=== PATIENT | female | born 1955 | race Caucasian/White ===

== ENCOUNTER 2017-02-06 11:09 | Observation (INO) | payer OTHER ==
[~2017-02-06] VITALS: Ht 157.5 cm; Wt 62.6 kg
[2017-02-06 12:29] LABS: BASOPHIL % 0.4 % (0-2); PLATELET COUNT 256 x10^3mcL (130-400); RED CELL DISTRIBUTION WIDTH 12.8 % (11.5-14.5)
[2017-02-06 12:38] LABS: CALCIUM 9.1 mg/dL (8.5-10.1); CARBON DIOXIDE 24.4 mmol/L (21-32); CHLORIDE SERUM 106 mmol/L (98-107); CREATININE SERUM 0.6 mg/dL (0.6-1.0); GFR1 > 60 mL/min; GLUCOSE SERUM 101 mg/dL (74-106); POTASSIUM SERUM 4.1 mmol/L (3.5-5.1); SODIUM SERUM 141 mmol/L (136-145)
[2017-02-06 12:42] LABS: ALBUMIN 3.9 g/dL (3.4-5.0); ALKALINE PHOSPHATASE 109 U/L (46-116); ALT/SGPT 36 U/L (14-59); AST/SGOT 24 U/L (15-37); BILIRUBIN TOTAL 0.44 mg/dL (0.20-1.00); MAGNESIUM 2.3 mg/dL (1.8-2.4); TOTAL PROTEIN, SERUM 7.1 g/dL (6.4-8.2)
[2017-02-06 13:08] LABS: UA SPECIFIC GRAVITY <=1.005 (1.005-1.035); microscopic required? YES; urine erythrocyte TRACE (NEGATIVE)
[2017-02-06] MEDS ORDERED: NOR5 PO (14:36)
[2017-02-06] MEDS ORDERED: MECLIZINE HYDRO25 M1 PO (14:56)
[2017-02-06 14:59] VITALS: BP 166/84
[2017-02-06 18:04] VITALS: BP 141/74
[2017-02-06 20:45] VITALS: BP 123/69
[2017-02-07] VITALS (7 sets, daily range): BP systolic 81–119; BP diastolic 34–73
[2017-02-07 06:24] LABS: BASOPHIL % 0.9 % (0-2); PLATELET COUNT 238 x10^3mcL (130-400); RED CELL DISTRIBUTION WIDTH 12.9 % (11.5-14.5)
[2017-02-07] MEDS ORDERED: ZES10 PO (08:37)
== END 2017-02-07 14:41 | disposition home or self-care (01) | DRG 199 ==
LOC: ED 11:09 → DU 13:48
PROVIDERS: Emergency Medicine; ADMIT Internal Medicine Pulmonary Disease
DX: I16.0 Hypertensive urgency (principal); E86.0 Dehydration; N81.4 Uterovaginal prolapse, unspecified; F17.200 Nicotine dependence, unspecified, uncomplicated; Z79.82 Long term (current) use of aspirin
CPT/HCPCS: 83880; G0378; J1650; J8597; Q0092

== ENCOUNTER 2018-05-19 09:53 | Emergency (ER) | payer OTHER ==
[~2018-05-19] VITALS: Ht 160 cm; Wt 74.4 kg
[~2018-05-19 09:53] MED LIST: MECLIZINE HYDRO25 M1 PO; NOR5 PO; ZES10 PO
[2018-05-19 10:00] VITALS: Ht 160 cm; Wt 74.4 kg
[2018-05-19 10:52] VITALS: BP 155/74
== END 2018-05-19 10:21 | disposition home or self-care (01) ==
LOC: ED 09:53
DX: L03.115 Cellulitis of right lower limb (principal); S81.801A Unspecified open wound, right lower leg, initial encounter; W22.8XXA Striking against or struck by other objects, initial encounter; Y93.89 Activity, other specified; Y92.89 Other specified places as the place of occurrence of the external cause; Y99.8 Other external cause status

== ENCOUNTER 2019-09-02 10:46 | Emergency (ER) | payer OTHER ==
[~2019-09-02] VITALS: Ht 157.5 cm; Wt 70.8 kg
[2019-09-02 10:53] VITALS: Ht 157.5 cm; Wt 70.8 kg
[2019-09-02 12:03] LABS: BASOPHIL % 0.6 % (0-2); PLATELET COUNT 324 x10^3mcL (130-400); RED CELL DISTRIBUTION WIDTH 12.2 % (11.5-14.5)
[2019-09-02 12:17] LABS: CALCIUM 9.2 mg/dL (8.5-10.1); CARBON DIOXIDE 24.8 mmol/L (21-32); CHLORIDE SERUM 97 mmol/L (98-107); CREATININE SERUM 0.7 mg/dL (0.6-1.0); GFR1 > 60 mL/min; GLUCOSE SERUM 100 mg/dL (74-106); POTASSIUM SERUM 3.3 mmol/L (3.5-5.1); SODIUM SERUM 133 mmol/L (136-145)
[2019-09-02 12:21] LABS: ALBUMIN 4.1 g/dL (3.4-5.0); ALKALINE PHOSPHATASE 129 U/L (46-116); ALT/SGPT 81 U/L (14-59); AST/SGOT 54 U/L (15-37); BILIRUBIN TOTAL 0.57 mg/dL (0.20-1.00); MAGNESIUM 2.1 mg/dL (1.8-2.4); TOTAL PROTEIN, SERUM 7.9 g/dL (6.4-8.2)
[2019-09-02 12:33] LABS: CHOLESTEROL 244 mg/dL (<200); HDL CHOLESTEROL 66 mg/dL (40-60)
[2019-09-02 12:39] LABS: microscopic required? YES; urine erythrocyte TRACE (NEGATIVE)
[2019-09-02 13:40] LABS: AMPHETAMINE QUAL UR NONE DETECTED (See below)
[2019-09-02 15:20] VITALS: BP 128/67
== END 2019-09-02 15:43 | disposition home or self-care (01) ==
LOC: ED 10:46
PROVIDERS: Emergency Medicine
DX: R42 Dizziness and giddiness (principal); R51 Headache; E87.8 Other disorders of electrolyte and fluid balance, not elsewhere classified; I10 Essential (primary) hypertension; Z98.890 Other specified postprocedural states; Z90.710 Acquired absence of both cervix and uterus; Z90.49 Acquired absence of other specified parts of digestive tract; Z88.8 Allergy status to other drugs, medicaments and biological substances
CPT/HCPCS: G0480; J1885; J7030; J8597; Q0092

== ENCOUNTER 2019-11-18 10:16 | Emergency (ER) | payer OTHER ==
[~2019-11-18] VITALS: Ht 157.5 cm; Wt 69.9 kg
[2019-11-18 10:26] VITALS: Ht 157.5 cm; Wt 69.9 kg
[2019-11-18 13:09] VITALS: BP 105/56
== END 2019-11-18 13:50 | disposition home or self-care (01) ==
LOC: ED 10:16
DX: J20.9 Acute bronchitis, unspecified (principal); I10 Essential (primary) hypertension; Z88.1 Allergy status to other antibiotic agents
CPT/HCPCS: J7613

== ENCOUNTER 2020-05-24 11:31 | Emergency (ER) | payer OTHER ==
[~2020-05-24] VITALS: Ht 157.5 cm; Wt 71.2 kg
[2020-05-24 11:32] VITALS: Ht 157.5 cm; Wt 71.2 kg
[2020-05-24 12:19] LABS: BASOPHIL % 1.1 % (0-2); PLATELET COUNT 355 x10^3mcL (130-400); RED CELL DISTRIBUTION WIDTH 12.1 % (11.5-14.5)
[2020-05-24 12:31] LABS: UA SPECIFIC GRAVITY 1.015 (1.005-1.035); microscopic required? YES; urine erythrocyte NEGATIVE (NEGATIVE)
[2020-05-24 12:43] LABS: CALCIUM 8.7 mg/dL (8.5-10.1); CARBON DIOXIDE 27.9 mmol/L (21-32); CHLORIDE SERUM 97 mmol/L (98-107); CREATININE SERUM 0.8 mg/dL (0.6-1.0); GFR1 > 60 mL/min; GLUCOSE SERUM 109 mg/dL (74-106); POTASSIUM SERUM 3.6 mmol/L (3.5-5.1); SODIUM SERUM 134 mmol/L (136-145)
[2020-05-24 12:49] LABS: ALBUMIN 3.9 g/dL (3.4-5.0); ALKALINE PHOSPHATASE 139 U/L (46-116); ALT/SGPT 62 U/L (14-59); AST/SGOT 31 U/L (15-37); BILIRUBIN TOTAL 0.5 mg/dL (0.20-1.00); HDL CHOLESTEROL 51 mg/dL (40-60); LIPASE 65 IU/L (73-393); TRIGLYCERIDES 186 mg/dL (<150)
[2020-05-24 13:03] LABS: CHOLESTEROL 242 mg/dL (<200); CHOLESTEROL/HDL RATIO 4.7; TOTAL PROTEIN, SERUM 9.5 g/dL (6.4-8.2)
[2020-05-24 13:42] LABS: FREE T4 0.89 ng/dL (0.76-1.46); FREE THYROXINE INDEX 2.2 ug/dL (1.4-4.5); T4(THYROXINE) 7.3 ug/dL (4.7-13.3)
[2020-05-24 14:15] VITALS: BP 136/76
[2020-05-24 14:23] LABS: T3 TOTAL 1.19 ng/mL
== END 2020-05-24 14:20 | disposition home or self-care (01) ==
LOC: ED 11:31
PROVIDERS: Specialist
DX: I10 Essential (primary) hypertension (principal); N39.0 Urinary tract infection, site not specified; Z90.710 Acquired absence of both cervix and uterus
CPT/HCPCS: 83880; 84439; Q0092

== ENCOUNTER 2020-08-01 07:15 | Day surgery (SDC) | payer OTHER ==
[2020-07-28 11:58] LABS: PLATELET COUNT 329 x10^3mcL (130-400); RED CELL DISTRIBUTION WIDTH 12.5 % (11.5-14.5)
[2020-07-28 12:01] LABS: ALBUMIN 4.1 g/dL (3.4-5.0); ALKALINE PHOSPHATASE 135 U/L (46-116); ALT/SGPT 40 U/L (14-59); AST/SGOT 24 U/L (15-37); BILIRUBIN TOTAL 0.7 mg/dL (0.20-1.00); CALCIUM 9.6 mg/dL (8.5-10.1); CHLORIDE SERUM 96 mmol/L (98-107); CREATININE SERUM 0.7 mg/dL (0.6-1.0); GFR1 > 60 mL/min; GLUCOSE SERUM 116 mg/dL (74-106); SODIUM SERUM 132 mmol/L (136-145); TOTAL PROTEIN, SERUM 7.8 g/dL (6.4-8.2)
--- NOTE | 2020-07-29 08:54 | NUR ---
LABS SENT OVER TO [facility] FOR REVEIW. LABS OKAYS PER DR. Greyson NOBLE FOR SURGERY ON 08-01-20
[~2020-08-01] VITALS: Ht 157.5 cm; Wt 69.8 kg
[2020-08-01 07:41] VITALS: BP 138/82
[2020-08-01 16:24] VITALS: BP 128/68
== END 2020-08-01 16:10 | disposition home or self-care (01) ==
LOC: DS 07:15 → OR 09:00 → DS 09:30
PROVIDERS: ATTEND Surgery
DX: K80.10 Calculus of gallbladder with chronic cholecystitis without obstruction (principal); I10 Essential (primary) hypertension; Z79.899 Other long term (current) drug therapy; Z90.710 Acquired absence of both cervix and uterus
CPT/HCPCS: J0694; J1170; J2405; J3010; J3490

== ENCOUNTER 2020-08-08 09:59 | Inpatient (IN) | payer OTHER ==
[~2020-08-08] VITALS: Ht 157.5 cm; Wt 69.9 kg
[2020-08-08 10:10] VITALS: Ht 157.5 cm; Wt 69.9 kg
[2020-08-08 10:37] LABS: BASOPHIL % 0.8 % (0-2); PLATELET COUNT 356 x10^3mcL (130-400); RED CELL DISTRIBUTION WIDTH 12.4 % (11.5-14.5)
[2020-08-08 10:50] LABS: CARBON DIOXIDE 25.7 mmol/L (21-32); CHLORIDE SERUM 93 mmol/L (98-107); CREATININE SERUM 0.7 mg/dL (0.6-1.0); GFR1 > 60 mL/min; GLUCOSE SERUM 110 mg/dL (74-106); POTASSIUM SERUM 3.6 mmol/L (3.5-5.1); SODIUM SERUM 128 mmol/L (136-145)
[2020-08-08 10:53] LABS: ALBUMIN 3.5 g/dL (3.4-5.0); ALKALINE PHOSPHATASE 282 U/L (46-116); ALT/SGPT 311 U/L (14-59); AST/SGOT 183 U/L (15-37); CHOLESTEROL 181 mg/dL (<200); CHOLESTEROL/HDL RATIO 3.2; HDL CHOLESTEROL 57 mg/dL (40-60); LIPASE 107 IU/L (73-393); TOTAL PROTEIN, SERUM 7.4 g/dL (6.4-8.2); TRIGLYCERIDES 104 mg/dL (<150)
[2020-08-08 11:15] LABS: UA SPECIFIC GRAVITY 1.015 (1.005-1.035); microscopic required? YES; urine erythrocyte NEGATIVE (NEGATIVE)
[2020-08-08] MEDS ORDERED: ACETAMINOPHEN-H1 TA1 PO (14:40)
[2020-08-08] MEDS ORDERED: DILTIAZEM HCL120 M3 PO (14:40)
[2020-08-08] MEDS ORDERED: COL-RITE100 M2 PO (14:41)
[2020-08-08] MEDS ORDERED: KEFLEX250 M1 PO (14:41)
[2020-08-08 16:31] VITALS: BP 121/67
[2020-08-08] MEDS ORDERED: LOSARTAN POTASS1 TA6 PO (17:02)
[2020-08-08 17:15] VITALS: BP 113/62
[2020-08-08 21:12] VITALS: BP 102/55
[2020-08-09 05:19] VITALS: BP 102/60
[2020-08-09 07:37] LABS: BASOPHIL % 0.8 % (0-2); PLATELET COUNT 307 x10^3mcL (130-400); RED CELL DISTRIBUTION WIDTH 12.3 % (11.5-14.5)
[2020-08-09 08:08] LABS: ALKALINE PHOSPHATASE 319 U/L (46-116); ALT/SGPT 290 U/L (14-59); AST/SGOT 164 U/L (15-37); BILIRUBIN TOTAL 0.7 mg/dL (0.20-1.00); CALCIUM 8.4 mg/dL (8.5-10.1); CHLORIDE SERUM 93 mmol/L (98-107); CHOLESTEROL 159 mg/dL (<200); CHOLESTEROL/HDL RATIO 3.6; CREATININE SERUM 0.6 mg/dL (0.6-1.0); GFR1 > 60 mL/min; GLUCOSE SERUM 76 mg/dL (74-106); HDL CHOLESTEROL 44 mg/dL (40-60); LIPASE 128 IU/L (73-393); MAGNESIUM 2.2 mg/dL (1.8-2.4); POTASSIUM SERUM 3.4 mmol/L (3.5-5.1); SODIUM SERUM 126 mmol/L (136-145); TOTAL PROTEIN, SERUM 6.3 g/dL (6.4-8.2); TRIGLYCERIDES 100 mg/dL (<150)
[2020-08-09 08:12] LABS: ALBUMIN 2.9 g/dL (3.4-5.0)
[2020-08-09 08:45] VITALS: BP 120/66
[2020-08-09 12:06] VITALS: BP 119/69
[2020-08-09 16:46] VITALS: BP 126/75
[2020-08-09 20:47] VITALS: BP 134/78
[2020-08-10 05:09] VITALS: BP 138/70
[2020-08-10 07:22] LABS: BASOPHIL % 0.7 % (0-2); PLATELET COUNT 337 x10^3mcL (130-400); RED CELL DISTRIBUTION WIDTH 12.5 % (11.5-14.5)
[2020-08-10 08:00] VITALS: BP 139/72
[2020-08-10 08:01] LABS: ALKALINE PHOSPHATASE 341 U/L (46-116); ALT/SGPT 197 U/L (14-59); AST/SGOT 83 U/L (15-37); BILIRUBIN TOTAL 0.6 mg/dL (0.20-1.00); CALCIUM 8.4 mg/dL (8.5-10.1); CARBON DIOXIDE 22.8 mmol/L (21-32); CHLORIDE SERUM 96 mmol/L (98-107); CREATININE SERUM 0.6 mg/dL (0.6-1.0); GFR1 > 60 mL/min; GLUCOSE SERUM 68 mg/dL (74-106); LIPASE 105 IU/L (73-393); POTASSIUM SERUM 4.1 mmol/L (3.5-5.1); SODIUM SERUM 128 mmol/L (136-145); TOTAL PROTEIN, SERUM 6.4 g/dL (6.4-8.2)
[2020-08-10 08:05] LABS: ALBUMIN 2.9 g/dL (3.4-5.0)
[2020-08-10 12:09] VITALS: BP 137/71
[2020-08-10 16:57] VITALS: BP 114/65
[2020-08-10 21:42] VITALS: BP 140/84
[2020-08-11 04:56] VITALS: BP 1369/80
[2020-08-11 07:15] LABS: ALKALINE PHOSPHATASE 291 U/L (46-116); ALT/SGPT 132 U/L (14-59); AST/SGOT 39 U/L (15-37); BILIRUBIN TOTAL 0.3 mg/dL (0.20-1.00); CALCIUM 8.7 mg/dL (8.5-10.1); CARBON DIOXIDE 25.8 mmol/L (21-32); CHLORIDE SERUM 97 mmol/L (98-107); CREATININE SERUM 0.6 mg/dL (0.6-1.0); GFR1 > 60 mL/min; GLUCOSE SERUM 87 mg/dL (74-106); LIPASE 94 IU/L (73-393); MAGNESIUM 1.9 mg/dL (1.8-2.4); POTASSIUM SERUM 3.5 mmol/L (3.5-5.1); SODIUM SERUM 129 mmol/L (136-145)
[2020-08-11 07:31] LABS: ALBUMIN 2.8 g/dL (3.4-5.0); TOTAL PROTEIN, SERUM 6.1 g/dL (6.4-8.2)
[2020-08-11 07:35] VITALS: BP 131/74
[2020-08-11 07:55] LABS: PLATELET COUNT 347 x10^3mcL (130-400); RED CELL DISTRIBUTION WIDTH 12.2 % (11.5-14.5)
[2020-08-11 16:18] VITALS: BP 154/70
[2020-08-11 21:15] VITALS: BP 98/68
[2020-08-12 04:46] VITALS: BP 134/71
[2020-08-12 07:14] LABS: ALKALINE PHOSPHATASE 272 U/L (46-116); ALT/SGPT 106 U/L (14-59); AST/SGOT 24 U/L (15-37); BASOPHIL % 0.8 % (0-2); BILIRUBIN TOTAL 0.27 mg/dL (0.20-1.00); CALCIUM 8.7 mg/dL (8.5-10.1); CARBON DIOXIDE 25.3 mmol/L (21-32); CHLORIDE SERUM 100 mmol/L (98-107); CREATININE SERUM 0.6 mg/dL (0.6-1.0); GFR1 > 60 mL/min; GLUCOSE SERUM 90 mg/dL (74-106); LIPASE 70 IU/L (73-393); MAGNESIUM 1.8 mg/dL (1.8-2.4); PLATELET COUNT 381 x10^3mcL (130-400); POTASSIUM SERUM 3.3 mmol/L (3.5-5.1); RED CELL DISTRIBUTION WIDTH 12.7 % (11.5-14.5); SODIUM SERUM 133 mmol/L (136-145); TOTAL PROTEIN, SERUM 6.3 g/dL (6.4-8.2)
[2020-08-12 07:16] LABS: ALBUMIN 2.9 g/dL (3.4-5.0)
[2020-08-12 08:08] VITALS: BP 131/65
[2020-08-12 12:03] VITALS: BP 155/78
[2020-08-12 16:15] VITALS: BP 155/78
[2020-08-12 16:42] VITALS: BP 136/73
== END 2020-08-12 16:45 | disposition home or self-care (01) | DRG 463 ==
LOC: ED 09:59 → MU 14:08
PROVIDERS: Specialist; ADMIT Hospitalist; ATTEND Hospitalist
DX: N39.0 Urinary tract infection, site not specified (principal); E87.1 Hypo-osmolality and hyponatremia; K86.89 Other specified diseases of pancreas; E78.00 Pure hypercholesterolemia, unspecified; I10 Essential (primary) hypertension; E78.5 Hyperlipidemia, unspecified; K83.8 Other specified diseases of biliary tract; Z20.828 Contact with and (suspected) exposure to other viral communicable diseases; Z88.8 Allergy status to other drugs, medicaments and biological substances; Z90.710 Acquired absence of both cervix and uterus; Z90.49 Acquired absence of other specified parts of digestive tract; Z79.899 Other long term (current) drug therapy
CPT/HCPCS: 83880; G0378; J0696; J1885; J2270; J7030; J7060; Q0092